=== PATIENT | male | born 1945 | race Caucasian/White ===

== ENCOUNTER → 2016-08-15 | Day surgery (SDC) | payer OTHER ==
[~2016-08-15] MED LIST: BUPIVACAINE/EPINEPHRINE 0.5% PF 30 ML VIAL ONE; KETOROLAC TROMETHAMINE 30 MG/ML (IVP) VIAL IV PUSH ONE; LACTATED RINGER'S 1000 ML INJ 1,000 ML ONE; MIDAZOLAM HCL 2 MG/2 ML VIAL ONE; ONDANSETRON HCL 4 MG/2 ML VIAL IV PUSH ONE; ceFAZolin INJ 1,000 MG VIAL ONE
--- NOTE | 2016-08-15 19:35 | TN ---
cc: SANDY TELLEZ DATE OF SURGERY 08/15/2016 PREOPERATIVE DIAGNOSIS Internal derangement of the right knee. POSTOPERATIVE DIAGNOSIS Complex tear medial meniscus, right knee. PROCEDURE 1. Arthroscopy of the right knee. 2. Arthroscopic medial meniscectomy. SURGEON Loraine Tellez MD ANESTHESIA General. ESTIMATED BLOOD LOSS Minimal. INDICATIONS This is a 71-year-old male with catching, locking pain in his right knee. Investigative studies are consistent with a torn medial meniscus. He presents for surgical treatment. PROCEDURE IN DETAIL The patient was brought to the operating room, anesthetized in supine position. The right leg was scrubbed with alcohol followed by Hibiclens followed by Chloraprep and draped sterilely in the arthroscopy [place]. Antibiotics were given within a 1 hour time window and a time-out was done. After exsanguination, the tourniquet was inflated to 250 mmHg. Inflow was established anterior and laterally. The suprapatellar pouch was unremarkable. The medial compartment showed a bucket handle tear of the medial meniscus that had detached from the posterior horn and was flipped on top of the rest of the medial meniscus and into the lateral gutter. The articular cartilage showed minimal changes. The ACL was normal and the lateral compartment was totally normal. A separate spinal needle was used for a separate incision on the medial side. Straight and angled punches were used to take the meniscus back to stable rim. Ultimately, this was resected from approximately the 4 o'clock position to the posterior horn tapering toward the anterior portion. This removed approximately 45% of the meniscus. The rest of the meniscal rim was stable. All fragments were floated free from the joint. The wound was irrigated copiously. Hemostasis was controlled. The portals were closed with Steri-Strips and Benzoin. A sterile dressing was applied. The patient was awakened and taken to recovery in satisfactory condition. Sandy Tellez MD [facility] [place]/ /4:20 PM /7:27 PM
== END | disposition home or self-care (01) ==
LOC: ESDC 12:49
PROVIDERS: ATTEND Orthopaedic Surgery Orthopaedic Surgery of the Spine
DX: S83.231A Complex tear of medial meniscus, current injury, right knee, initial encounter (principal)
CPT/HCPCS: 01400; 29881; J0690; J1885; J2250; J2405; J3010; J7120